=== PATIENT | male | born 1965 | race Caucasian/White ===

== ENCOUNTER 2016-10-12 17:15 | Inpatient (IN) | payer MEDICAID ==
[~2016-10-12] VITALS: Ht 172.7 cm; Wt 82.1 kg
[~2016-10-12 17:15] MED LIST: AMLODIPINE BES2.5 M1 PO; ATENOLOL25 MG PO; CEF250 PO; CEPHALEXIN500 MG PO; CLONAZEPAM1 MG PO; CLOTRIMAZOLE1% TOP; COLACE100 MG PO; ENALAPRIL MALE2.5 MG PO; FERROUS SULFAT324 M1 PO; FUROSEMIDE20 MG PO; GLYBURIDE2.5 MG PO; GLYBURIDE5 MG PO; IBUPROFEN400 MG PO; LAC PO; LATANOPROST2.5 ML OU; LEVOFLOXACIN500 M1 PO; LEVOTHYROXIN0.125 M2 PO; LOTRIMIN AF1% TOP; METFORMIN HCL500 MG PO; OMEPRAZOLE DR20 M1 PO; PRILOSEC20 MG PO; RISPERDAL0.25 MG PO; RISPERIDONE1 MG PO; SEROQUEL200 MG PO; SEROQUEL25 MG PO; TRAZODONE HYDR150 MG PO; TRAZODONE150 M1 PO; XALOS OU
[2016-10-12 19:18] LABS: BASOPHIL % 0.4 % (0-2); PLATELET COUNT 268 x10^3mcL (130-400)
[2016-10-12 19:27] LABS: RED CELL DISTRIBUTION WIDTH 16.8 % (11.5-14.5)
[2016-10-12 19:40] LABS: CALCIUM 8.9 mg/dL (8.5-10.1); CARBON DIOXIDE 25.5 mmol/L (21-32); CREATININE SERUM 1.5 mg/dL (0.7-1.3); POTASSIUM SERUM 4.3 mmol/L (3.5-5.1)
[2016-10-12 20:09] LABS: PHOSPHOROUS 3.6 mg/dL (2.5-4.9)
[2016-10-12 20:12] LABS: BILIRUBIN TOTAL 0.29 mg/dL (0.20-1.00); TOTAL PROTEIN, SERUM 7.7 g/dL (6.4-8.2)
[2016-10-12 20:13] LABS: ALBUMIN 3.1 g/dL (3.4-5.0)
[2016-10-12 20:22] LABS: BILIRUBIN DIRECT 0.09 mg/dL (0.0-0.2); BILIRUBIN TOTAL 0.2 mg/dL (0.20-1.00); TOTAL PROTEIN, SERUM 7.7 g/dL (6.4-8.2)
[2016-10-12 20:24] LABS: ALBUMIN 3.1 g/dL (3.4-5.0)
[2016-10-12] MEDS ORDERED: GLIPIZIDE2.5 M1 (23:34)
[2016-10-12] MEDS ORDERED: RISPERDAL0.25 MG (23:35)
[2016-10-12] MEDS ORDERED: LEVOTHYROXIN0.025 M2 (23:35)
[2016-10-12] MEDS ORDERED: SEROQUEL25 MG (23:35)
[2016-10-12] MEDS ORDERED: ATENOLOL25 MG PO (23:35)
[2016-10-12] MEDS ORDERED: NATURAL IRON65 MG (23:35)
[2016-10-12] MEDS ORDERED: RAMIPRIL2.5 MG PO (23:35)
[2016-10-12] MEDS ORDERED: CLONAZEPAM0.125 M1 PO (23:35)
[2016-10-12] MEDS ORDERED: TRAZODONE HCL1 POW (23:35)
[2016-10-12] MEDS ORDERED: APAP325 MG (23:36)
[2016-10-12] MEDS ORDERED: LASIX20 MG PO (23:36)
[2016-10-13 01:02] VITALS: BP 133/71
[2016-10-13 01:07] VITALS: Ht 172.7 cm; Wt 82.1 kg
[2016-10-13 02:41] LABS: FREE T4 1.11 ng/dL (0.76-1.46); FREE THYROXINE INDEX 2.5 ug/dL (1.4-4.5); T4(THYROXINE) 7.2 ug/dL (4.7-13.3)
[2016-10-13 02:50] LABS: T3 TOTAL 0.5 ng/mL
[2016-10-13 02:53] LABS: CHOLESTEROL/HDL RATIO 3.3
[2016-10-13 04:46] VITALS: BP 132/80
[2016-10-13] MEDS ORDERED: FERROUS SULFAT325 M2 PO (04:47)
[2016-10-13] MEDS ORDERED: RIS1 PO (04:47)
[2016-10-13] MEDS ORDERED: TRAZODONE50 M1 PO (04:48)
[2016-10-13] MEDS ORDERED: ARTOS OU (04:48)
[2016-10-13] MEDS ORDERED: GLIPIZIDE2.5 M1 PO (04:49)
[2016-10-13] MEDS ORDERED: LEVOTHYROXIN0.125 M2 PO (04:49)
[2016-10-13] MEDS ORDERED: SEROQUEL200 MG PO (04:50)
[2016-10-13] MEDS ORDERED: CLONAZEPAM1 MG PO (04:55)
[2016-10-13 06:36] LABS: BASOPHIL % 0.3 % (0-2); PLATELET COUNT 266 x10^3mcL (130-400)
[2016-10-13 06:55] LABS: RED CELL DISTRIBUTION WIDTH 16.6 % (11.5-14.5)
[2016-10-13 07:08] LABS: CARBON DIOXIDE 27.1 mmol/L (21-32); CHLORIDE SERUM 100 mmol/L (98-107); CREATININE SERUM 1.3 mg/dL (0.7-1.3); GFR1 > 60 mL/min; GLUCOSE SERUM 126 mg/dL (74-106); MAGNESIUM 1.9 mg/dL (1.8-2.4); PHOSPHOROUS 3.4 mg/dL (2.5-4.9); POTASSIUM SERUM 4.1 mmol/L (3.5-5.1); SODIUM SERUM 136 mmol/L (136-145)
[2016-10-13 09:34] VITALS: BP 131/82
[2016-10-13 13:44] VITALS: BP 110/62
[2016-10-13 16:22] LABS: UA SPECIFIC GRAVITY 1.015 (1.005-1.035); microscopic required? YES; urine erythrocyte 3+ (NEGATIVE)
[2016-10-13 18:07] VITALS: BP 111/70
[2016-10-13 21:59] VITALS: BP 119/68
[2016-10-14 06:59] VITALS: BP 127/66
[2016-10-14 09:59] VITALS: BP 112/69
[2016-10-14 12:34] VITALS: BP 105/72
[2016-10-14 16:07] LABS: BASOPHIL % 0.3 % (0-2); PLATELET COUNT 298 x10^3mcL (130-400)
[2016-10-14 16:16] LABS: CALCIUM 9.1 mg/dL (8.5-10.1); CARBON DIOXIDE 28.3 mmol/L (21-32); CHLORIDE SERUM 100 mmol/L (98-107); CREATININE SERUM 1.3 mg/dL (0.7-1.3); GFR1 > 60 mL/min; GLUCOSE SERUM 134 mg/dL (74-106); POTASSIUM SERUM 4.1 mmol/L (3.5-5.1); SODIUM SERUM 135 mmol/L (136-145)
[2016-10-14 16:17] LABS: RED CELL DISTRIBUTION WIDTH 16.2 % (11.5-14.5)
[2016-10-14 17:46] VITALS: BP 107/65
[2016-10-14 20:06] VITALS: BP 96/61
[2016-10-14 21:15] VITALS: BP 96/62
[2016-10-15 05:06] VITALS: BP 109/64
[2016-10-15 06:57] LABS: CALCIUM 8.9 mg/dL (8.5-10.1); CARBON DIOXIDE 24.3 mmol/L (21-32); CREATININE SERUM 1.4 mg/dL (0.7-1.3); POTASSIUM SERUM 4.4 mmol/L (3.5-5.1)
[2016-10-15 07:01] LABS: BASOPHIL % 0.1 % (0-2); PLATELET COUNT 286 x10^3mcL (130-400); RED CELL DISTRIBUTION WIDTH 16.1 % (11.5-14.5)
[2016-10-15 09:20] VITALS: BP 11/78; BP 111/78
[2016-10-15] MEDS ORDERED: CLEOCIN HCL300 MG PO (11:26)
[2016-10-15] MEDS ORDERED: LAC PO (11:26)
[2016-10-15 11:48] VITALS: BP 111/78
== END 2016-10-15 13:10 | DRG 383 ==
LOC: ED 17:15 → DU 22:23 → MU 10-14 11:20
PROVIDERS: Emergency Medicine; Family Medicine; ADMIT Family Medicine
DX: L03.113 Cellulitis of right upper limb (principal); N17.0 Acute kidney failure with tubular necrosis; D68.69 Other thrombophilia; I10 Essential (primary) hypertension; D64.9 Anemia, unspecified; E11.59 Type 2 diabetes mellitus with other circulatory complications; H91.3 Deaf nonspeaking, not elsewhere classified; F70 Mild intellectual disabilities; F63.9 Impulse disorder, unspecified; F44.4 Conversion disorder with motor symptom or deficit; H40.9 Unspecified glaucoma; E03.9 Hypothyroidism, unspecified; Z68.27 Body mass index [BMI] 27.0-27.9, adult; Z79.84 Long term (current) use of oral hypoglycemic drugs
CPT/HCPCS: 82962; 83880; 84439; J3490; J7030

== ENCOUNTER 2017-02-05 10:44 | Emergency (ER) | payer MEDICAID ==
[~2017-02-05 10:44] MED LIST changes: +APAP325 MG; +ARTOS OU; +CLEOCIN HCL300 MG PO; +CLONAZEPAM0.125 M1 PO; +FERROUS SULFAT325 M2 PO; +GLIPIZIDE2.5 M1; +GLIPIZIDE2.5 M1 PO; +LASIX20 MG PO; +LEVOTHYROXIN0.025 M2; +NATURAL IRON65 MG; +RAMIPRIL2.5 MG PO; +RIS1 PO; +RISPERDAL0.25 MG; +SEROQUEL25 MG; +TRAZODONE HCL1 POW; +TRAZODONE50 M1 PO
[2017-02-05 12:37] LABS: BASOPHIL % 0.3 % (0-2); PLATELET COUNT 348 x10^3mcL (130-400)
[2017-02-05 12:41] LABS: RED CELL DISTRIBUTION WIDTH 18.1 % (11.5-14.5)
[2017-02-05 12:46] LABS: CARBON DIOXIDE 29.3 mmol/L (21-32); CHLORIDE SERUM 102 mmol/L (98-107); CREATININE SERUM 1.3 mg/dL (0.7-1.3); GFR1 > 60 mL/min; GLUCOSE SERUM 86 mg/dL (74-106); POTASSIUM SERUM 4.2 mmol/L (3.5-5.1); SODIUM SERUM 139 mmol/L (136-145)
[2017-02-05 12:51] LABS: ALKALINE PHOSPHATASE 130 U/L (46-116); ALT/SGPT 14 U/L (16-63); AST/SGOT 12 U/L (15-37); BILIRUBIN TOTAL 0.2 mg/dL (0.20-1.00)
[2017-02-05 12:56] LABS: ALBUMIN 3.1 g/dL (3.4-5.0); TOTAL PROTEIN, SERUM 8.3 g/dL (6.4-8.2)
[2017-02-05 13:57] VITALS: BP 115/65
[2017-02-05 14:28] LABS: microscopic required? YES; urine erythrocyte 1+ (NEGATIVE)
== END 2017-02-05 14:04 | disposition home or self-care (01) ==
LOC: ED 10:44
PROVIDERS: Emergency Medicine
DX: R60.0 Localized edema (principal); M79.642 Pain in left hand; I10 Essential (primary) hypertension; E11.9 Type 2 diabetes mellitus without complications; Z88.8 Allergy status to other drugs, medicaments and biological substances; Z79.84 Long term (current) use of oral hypoglycemic drugs
CPT/HCPCS: 36415

== ENCOUNTER 2017-08-23 10:26 | Emergency (ER) | payer MEDICAID ==
[~2017-08-23] VITALS: Ht 160 cm; Wt 84.4 kg
[2017-08-23 10:33] VITALS: BP 107/67; Ht 160 cm; Wt 84.4 kg
== END 2017-08-23 13:31 | disposition home or self-care (01) ==
LOC: ED 10:26
DX: S60.222A Contusion of left hand, initial encounter (principal); L03.114 Cellulitis of left upper limb; Z88.8 Allergy status to other drugs, medicaments and biological substances; X58.XXXA Exposure to other specified factors, initial encounter; Y93.89 Activity, other specified; Y99.8 Other external cause status; Y92.89 Other specified places as the place of occurrence of the external cause

== ENCOUNTER 2017-09-07 07:10 | Emergency (ER) | payer MEDICAID ==
[~2017-09-07] VITALS: Ht 160 cm; Wt 81.6 kg
[2017-09-07 07:19] VITALS: Ht 160 cm; Wt 81.6 kg
[2017-09-07 08:54] VITALS: BP 110/71
== END 2017-09-07 08:54 | disposition home or self-care (01) ==
LOC: ED 07:10
DX: S01.81XA Laceration without foreign body of other part of head, initial encounter (principal); I10 Essential (primary) hypertension; E11.9 Type 2 diabetes mellitus without complications; Z88.8 Allergy status to other drugs, medicaments and biological substances; W18.39XA Other fall on same level, initial encounter; Y93.89 Activity, other specified; Y92.89 Other specified places as the place of occurrence of the external cause; Y99.8 Other external cause status
CPT/HCPCS: J2001

== ENCOUNTER 2018-07-29 11:39 | Emergency (ER) | payer MEDICAID ==
[~2018-07-29] VITALS: Ht 160 cm; Wt 73.5 kg
[2018-07-29 11:50] VITALS: Ht 160 cm; Wt 73.5 kg
[2018-07-29 12:41] LABS: BASOPHIL % 0.4 % (0-2); PLATELET COUNT 366 x10^3mcL (130-400)
[2018-07-29 12:47] LABS: CALCIUM 8.7 mg/dL (8.5-10.1); CARBON DIOXIDE 21.4 mmol/L (21-32); CREATININE SERUM 2.7 mg/dL (0.7-1.3); POTASSIUM SERUM 4.8 mmol/L (3.5-5.1)
[2018-07-29 12:54] LABS: BILIRUBIN TOTAL 0.33 mg/dL (0.20-1.00); TOTAL PROTEIN, SERUM 7.9 g/dL (6.4-8.2)
[2018-07-29 12:55] LABS: ALBUMIN 2.4 g/dL (3.4-5.0)
[2018-07-29 14:28] VITALS: BP 111/68
== END 2018-07-29 14:40 | disposition home or self-care (01) ==
LOC: ED 11:39
PROVIDERS: Emergency Medicine
DX: D64.9 Anemia, unspecified (principal); R60.9 Edema, unspecified; N28.9 Disorder of kidney and ureter, unspecified; I10 Essential (primary) hypertension; E11.9 Type 2 diabetes mellitus without complications; Z88.8 Allergy status to other drugs, medicaments and biological substances
CPT/HCPCS: 36415; Q0092